=== PATIENT | male | born 1980 | race Caucasian/White ===

== ENCOUNTER 2023-08-12 01:33 | Emergency (ER) | payer OTHER ==
[~2023-08-12] VITALS: Ht 180.3 cm; Wt 59.0 kg
[2023-08-12] MEDS ORDERED: Albuterol 2.5 MG/3 ML VIAL INH SCH ×2 (01:40→01:50)
[2023-08-12] MEDS ORDERED: PredniSONE 20 MG Tab PO ONE (01:40)
[2023-08-12] MEDS ORDERED: ALBU90OI INH (01:41)
[2023-08-12] MEDS ORDERED: Prednisone20 MG PO (01:41)
[2023-08-12] MEDS ORDERED: CETI5 PO (01:44)
[2023-08-12] MEDS ORDERED: RX Prepack Albuterol 1 PREPACK/6.7 GM INH UD ONE (01:45)
== END 2023-08-12 02:52 | disposition home or self-care (01) ==
LOC: ER 01:33
DX: J45.901 Unspecified asthma with (acute) exacerbation (principal)
CPT/HCPCS: 71045; 94644; 94664; 99285-25; A9270; J7512